=== PATIENT | male | born 1990 | race African-American/Black ===

== ENCOUNTER 2019-09-27 | Emergency (ER) | payer OTHER ==
[2019-09-27] MEDS ORDERED: NAPROXEN500 MG PO (23:38)
== END 2019-09-28 00:55 | DRG 563 ==
PROC: 0RSJXZZ Reposition Right Shoulder Joint, External Approach (ICD-10-PCS; principal; 2019-09-27)
DX: S43.014A Anterior dislocation of right humerus, initial encounter (principal); X50.0XXA Overexertion from strenuous movement or load, initial encounter; X50.3XXA Overexertion from repetitive movements, initial encounter; Y93.B9 Activity, other involving muscle strengthening exercises; Y92.149 Unspecified place in prison as the place of occurrence of the external cause

== ENCOUNTER 2019-11-11 | Emergency (ER) | payer OTHER ==
[~2019-11-11] MED LIST: NAPROXEN500 MG PO
[2019-11-12] MEDS ORDERED: TRAMADOL HCL50 MG PO (02:30)
== END 2019-11-12 02:48 | DRG 563 ==
PROC: 0RSJXZZ Reposition Right Shoulder Joint, External Approach (ICD-10-PCS; principal; 2019-11-12)
DX: S43.014A Anterior dislocation of right humerus, initial encounter (principal); Y04.8XXA Assault by other bodily force, initial encounter; Y92.149 Unspecified place in prison as the place of occurrence of the external cause